=== PATIENT | female | born 1985 | race Caucasian/White ===

== ENCOUNTER 2023-03-09 11:24 | Day surgery (SDC) | payer MEDICAID ==
[~2023-03-09] VITALS: Ht 167.6 cm; Wt 74.4 kg
[2023-03-09] MEDS ORDERED: fentaNYL citrate 0.05 MG/ML VIAL ONE (12:22)
[2023-03-09] MEDS ORDERED: LIDOCAINE 2% 100 MG/5 ML UJET TP ONE (12:22)
[2023-03-09] MEDS ORDERED: diphenhydrAMINE 50 MG/ML VIAL ONE (12:22)
[2023-03-09] MEDS ORDERED: MIDAZOLAM 2 MG/2 ML VIAL ONE (12:22)
[2023-03-09] MEDS ORDERED: fentaNYL citrate 0.05 MG/ML VIAL IVP ONE (14:00)
[2023-03-09] MEDS ORDERED: MIDAZOLAM 2 MG/2 ML VIAL IVP ONE (14:00)
== END 2023-03-09 13:40 | disposition home or self-care (01) ==
LOC: MDS 11:24 → MMU 11:25 → MDS 13:40
PROVIDERS: ATTEND Internal Medicine Gastroenterology
DX: K51.011 Ulcerative (chronic) pancolitis with rectal bleeding (principal); D64.9 Anemia, unspecified; E55.9 Vitamin D deficiency, unspecified; Z92.25 Personal history of immunosuppression therapy; F41.9 Anxiety disorder, unspecified; F32.A Depression, unspecified; Z79.899 Other long term (current) drug therapy
CPT/HCPCS: 45331; 88305; J2250; J3010; J1200

== ENCOUNTER 2023-05-20 16:56 | Emergency (ER) | payer MEDICAID ==
[~2023-05-20] VITALS: Ht 162.6 cm; Wt 88.0 kg
[2023-05-20 17:05] VITALS: BP 145/83; PULSE 82; RESP 20; TEMP 98; O2SAT 99
[2023-05-20] MEDS ORDERED: ONDANSETRON 4 MG ODT PO ONE (17:15)
[2023-05-20] MEDS ORDERED: ACETAMINOPHEN EXTRA STRENGTH 500 MG TAB PO ONE (17:30)
[2023-05-20] MEDS ORDERED: ACET-9882 PO (17:34)
[2023-05-20] MEDS ORDERED: IBUP-2213 PO (17:34)
[2023-05-20] MEDS ORDERED: ONDA-188 PO (17:34)
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
[2023-05-20 18:35] VITALS: BP 138/88; PULSE 71; RESP 20; TEMP 98.2; O2SAT 100
--- NOTE | 2023-05-20 18:35 | NUR ---
Patient discharged with v/s stable. Written and verbal after care instructions given and explained. Patient alert, oriented and verbalized understanding of instructions. Ambulatory with steady gait. All questions addressed prior to discharge. ID band removed. Patient advised to follow up with PMD. Rx of Zofran, Motrin, and Tylenol given. Patient educated on indication of medication including possible reaction and side effects. Opportunity to ask questions provided and answered. Pt instructed to return back to the ER, if condition worsens.
== END 2023-05-20 18:35 | disposition home or self-care (01) ==
LOC: MED 16:56
DX: S06.0X0A Concussion without loss of consciousness, initial encounter (principal); R42 Dizziness and giddiness; H53.8 Other visual disturbances; Y08.89XA Assault by other specified means, initial encounter; Y93.89 Activity, other specified; Y92.89 Other specified places as the place of occurrence of the external cause; Y99.8 Other external cause status
CPT/HCPCS: 99283

== ENCOUNTER 2023-07-13 08:43 | Day surgery (SDC) | payer MEDICAID ==
[~2023-07-13] VITALS: Ht 165.1 cm; Wt 88.0 kg
[~2023-07-13 08:43] MED LIST: ACET-9882 PO; IBUP-2213 PO; ONDA-188 PO
[2023-07-13] MEDS ORDERED: fentaNYL citrate 0.05 MG/ML VIAL ONE (09:29)
[2023-07-13] MEDS ORDERED: diphenhydrAMINE 50 MG/ML VIAL ONE (09:29)
[2023-07-13] MEDS ORDERED: MIDAZOLAM 5 MG/5 ML VIAL ONE (09:30)
== END 2023-07-13 10:55 | disposition home or self-care (01) ==
LOC: MOR 08:43 → MMU 08:46 → MOR 10:55
PROVIDERS: ATTEND Internal Medicine Gastroenterology
DX: K51.90 Ulcerative colitis, unspecified, without complications (principal); F41.9 Anxiety disorder, unspecified; F32.A Depression, unspecified; Z92.25 Personal history of immunosuppression therapy; Z79.899 Other long term (current) drug therapy
CPT/HCPCS: 45331; 88305; J1200; J2250; J3010; J7030